=== PATIENT | male | born 1945 | race Caucasian/White ===

== ENCOUNTER → 2017-05-02 | Outpatient (CLI) | payer OTHER ==
[~2017-05-02] MED LIST: AUGMENTIN875 MG PO; ECOTRIN81 M1 PO; INFUVITE ADULT10 ML IV; NIASPAN500 MG PO; PROTONIX40 MG PO; SINGULAIR10 MG PO; ZOLOFT100 MG PO
== END | disposition home or self-care (01) ==
LOC: EEG 08:50
DX: R56.9 Unspecified convulsions (principal)
CPT/HCPCS: 95819